=== PATIENT | female | born 1990 | race Caucasian/White ===

== ENCOUNTER 2016-10-15 03:17 | Emergency (ER) | payer OTHER ==
[2016-10-15] MEDS ORDERED: ONDANSETRON 4 MG/2 ML VIAL IVP ONE ×2 (03:54→03:55)
[2016-10-15] MEDS ORDERED: NS 1,000 ML IV ONE (03:54)
--- NOTE | 2016-10-15 03:54 | EDPHY ---
H & P Stated Complaint: RLQ and periumbilical pain x2d, N/V/D, urinary hesitancy Time Seen by Provider: 10/15/16 03:40 HPI/ROS: Chief Complaint: Abdominal pain, nausea, vomiting HPI: 25-year-old woman presenting with 12 hours of abdominal pain, nausea, vomiting and diarrhea. Patient states the pain started kind of generally is crampy pain yesterday afternoon started having nausea and vomiting into the evening. She then this morning states that the pain settled in her right lower abdomen. Has had several episodes of diarrhea since then. Has had some subjective fevers or chills. Does not have a history of the same. Had an implant non placed in July. Does have a history of an umbilical hernia repair. ROS: 10 point Review of Systems is negative except as noted in the HPI. PMH: Umbilical hernia repair, tonsillectomy Medications: implanon Allergies: No known drug allergies Social History: No smoking, occasional alcohol, history of marijuana use but none recently Family History: non-contributory Physical Exam: Gen: Awake, Alert, No Distress HEENT: Nose: no rhinorrhea Eyes: PERRLA, EOMI Mouth: Moist mucosa Neck: Supple, no JVD Chest: nontender, lungs clear to auscultation Heart: S1, S2 normal, no murmur Abd: Soft, tenderness no right lower quadrant with mild voluntary guarding, no rebound, no adnexal tenderness Back: no CVA tenderness, no midline tenderness Ext: no edema, non-tender Skin: no rash Neuro: CN II-XII intact, Sensation grossly intact, Strength 5/5 in bilateral upper and lower extremities - Personal History LMP (Females 10-55): Extended Cycle BCP/Inj Current Tetanus/Diphtheria Vaccine: Unsure Current Tetanus Diphtheria and Acellular Pertussis (TDAP): Unsure - Medical/Surgical History Hx Asthma: No Hx Chronic Respiratory Disease: No Hx Diabetes: No Hx Cardiac Disease: No Hx Renal Disease: No Hx Cirrhosis: No Hx Alcoholism: No Hx HIV/AIDS: No Hx Splenectomy or Spleen Trauma: No Other PMH: hypotension, tonsillectomy, umbilical hernia repair - Social History Smoking Status: Never smoked Constitutional: Initial Vital Signs Temperature (C) 36.3 C 10/15/16 03:19 Heart Rate 110 H 10/15/16 03:19 Respiratory Rate 18 10/15/16 03:19 Blood Pressure 128/68 H 10/15/16 03:19 O2 Sat (%) 97 10/15/16 03:19 O2 Delivery Mode Room Air Allergies/Adverse Reactions: egg yolk Allergy (Verified 10/15/16 03:25) Home Medications: Medication Instructions Recorded Explanon Injection 10/15/16 Medical Decision Making - Diagnostics Imaging: Abdominal ultrasound: Majority of the appendix is visualized and appears normal. There are no other findings suggestive of acute appendicitis. Per Dr. Ramirez ED Course/Re-evaluation: Patient is feeling improved after IV fluids and antiemetics. Repeat examination has a benign abdomen. Laboratory work is unremarkable. Ultrasound shows a largely normal appearing appendix. Patient will be discharged with follow up at [facility] as needed. - Data Points Laboratory Results: Laboratory Results 10/15/16 03:38 10/15/16 03:38 10/15/16 10/15/16 10/15/16 03:38 03:38 03:38 WBC 9.23 10^3/uL 10^3/uL (3.80-9.50) RBC 5.12 10^6/uL 10^6/uL (4.18-5.33) Hgb 15.3 g/dL g/dL (12.6-16.3) Hct 44.8 % % (38.0-47.0) MCV 87.5 fL fL (81.5-99.8) MCH 29.9 pg pg (27.9-34.1) MCHC 34.2 g/dL g/dL (32.4-36.7) RDW 12.4 % % (11.5-15.2) Plt Count 259 10^3/uL 10^3/uL (150-400) MPV 10.1 fL fL (8.7-11.7) Neut % (Auto) 86.1 % H % (39.3-74.2) Lymph % (Auto) 8.2 % L % (15.0-45.0) [place] % (Auto) 4.9 % % (4.5-13.0) Eos % (Auto) 0.3 % L % (0.6-7.6) Baso % (Auto) 0.3 % % (0.3-1.7) Nucleat RBC Rel Count 0.0 % % (0.0-0.2) Absolute Neuts (auto) 7.94 10^3/uL H 10^3/uL (1.70-6.50) Absolute Lymphs (auto) 0.76 10^3/uL L 10^3/uL (1.00-3.00) Absolute Monos (auto) 0.45 10^3/uL 10^3/uL (0.30-0.80) Absolute Eos (auto) 0.03 10^3/uL 10^3/uL (0.03-0.40) Absolute Basos (auto) 0.03 10^3/uL 10^3/uL (0.02-0.10) Absolute Nucleated RBC 0.00 10^3/uL 10^3/uL (0-0.01) Immature Gran % 0.2 % % (0.0-1.1) Immature Gran # 0.02 10^3/uL 10^3/uL (0.00-0.10) Sodium 139 mEq/L mEq/L (134-144) Potassium 4.2 mEq/L mEq/L (3.5-5.2) Chloride 105 mEq/L mEq/L (97-110) Carbon Dioxide 22 mEq/l mEq/l (22-31) Anion Gap 12 mEq/L mEq/L (8-16) BUN 19 mg/dL mg/dL (7-23) Creatinine 0.9 mg/dL mg/dL (0.6-1.0) Estimated GFR > 60 Glucose 107 mg/dL H mg/dL (70-100) Calcium 9.3 mg/dL mg/dL (8.5-10.4) Beta HCG, Qual NEGATIVE Medications Given: Discontinued Medications Sodium Chloride (Ns) 1,000 mls @ 0 mls/hr IV ONCE ONE PRN Reason: Wide Open Stop: 10/15/16 03:55 Last Admin: 10/15/16 04:00 Dose: 1,000 mls Ondansetron HCl (Zofran) 4 mg IVP EDNOW ONE Stop: 10/15/16 03:56 Last Admin: 10/15/16 03:56 Dose: Not Given Ondansetron HCl (Zofran) 4 mg IVP EDNOW ONE Stop: 10/15/16 03:55 Last Admin: 10/15/16 04:01 Dose: 4 mg Departure - Departure Disposition: Home, Routine, Self-Care Clinical Impression: Acute gastroenteritis Condition: Good Instructions: Gastroenteritis (ED), Acute Nausea and Vomiting (ED) Additional Instructions: Drink plenty of fluids. He may take ondansetron for nausea and vomiting. Follow up with [facility] in 2-3 days if symptoms are not improving. Return for worsening pain, fevers, chills, inability to tolerate oral fluids, or any other concerns. Referrals: NONE *PRIMARY CARE P,. [Primary Care Provider] - As per Instructions [facility] [Clinic] - As per Instructions
[2016-10-15 04:01] LABS: % IMMATURE GRANULYOCYTES 0.2 % (0.0-1.1); ABSOLUTE IMMATURE GRANULOCYTES 0.02 10^3/uL (0.00-0.10); ADD DIFF? NO; ADD MORPH? NO; ADD SCAN? NO; ATYPICAL LYMPHOCYTE FLAG 10 (0-99); FRAGMENT RBC FLAG 0 (0-99); HEMATOCRIT 44.8 % (38.0-47.0); HEMOGLOBIN 15.3 g/dL (12.6-16.3); LEFT SHIFT FLG 0 (0-99); LIPEMIA HEMOLYSIS FLAG 90 (0-99); MEAN CELL HEMOGLOBIN 29.9 pg (27.9-34.1); MEAN CELL HEMOGLOBIN CONCENTR. 34.2 g/dL (32.4-36.7); MEAN CELL VOLUME 87.5 fL (81.5-99.8); MEAN PLATELET VOLUME 10.1 fL (8.7-11.7); PLATELET CLUMPS FLAG 0 (0-99); PLATELET COUNT 259 10^3/uL (150-400); RED BLOOD CELL COUNT 5.12 10^6/uL (4.18-5.33); RED CELL DISTRIBUTION WIDTH 12.4 % (11.5-15.2)
[2016-10-15 04:08] LABS: ANION GAP 12 mEq/L (8-16); CALCIUM 9.3 mg/dL (8.5-10.4); CARBON DIOXIDE 22 mEq/l (22-31); CHLORIDE 105 mEq/L (97-110); CREATININE 0.9 mg/dL (0.6-1.0); GLOMERULAR FILTRATION RATE > 60; GLUCOSE 107 mg/dL (70-100); POTASSIUM 4.2 mEq/L (3.5-5.2); SODIUM 139 mEq/L (134-144)
[2016-10-15] MEDS ORDERED: ONDANSETRON 4MG PREPACK#2 BTL TAKEHOME ONE (05:39)
[2016-10-15 05:49] VITALS: BP 100/55; PULSE 97; RESP 16; TEMP 98.6; O2SAT 98
== END 2016-10-15 05:48 | disposition home or self-care (01) ==
DX: K52.9 Noninfective gastroenteritis and colitis, unspecified (principal)
CPT/HCPCS: 96374; J2405

== ENCOUNTER 2018-09-06 22:48 | Emergency (ER) | payer OTHER ==
[2018-09-07] MEDS ORDERED: METOCLOPRAMIDE 10 MG/2 ML VIAL IVP ONE (00:04)
[2018-09-07] MEDS ORDERED: NS 1,000 ML IV ONE (00:04)
[2018-09-07] MEDS ORDERED: DEXAMETHASONE 10 MG/ML VIAL IVP ONE (00:04)
[2018-09-07] MEDS ORDERED: KETOROLAC 30 MG/1 ML SDV IVP ONE (00:04)
--- NOTE | 2018-09-07 01:05 | EDPHY ---
H & P Stated Complaint: dizzy tonight, intermittent HAs since - Personal History LMP (Females 10-55): Now Current Tetanus/Diphtheria Vaccine: Unsure - Medical/Surgical History Hx Asthma: No Hx Chronic Respiratory Disease: No Hx Diabetes: No Hx Cardiac Disease: No Hx Renal Disease: No Hx Cirrhosis: No Hx Alcoholism: No Hx HIV/AIDS: No Hx Splenectomy or Spleen Trauma: No Other PMH: hypotension, tonsillectomy, umbilical hernia repair - Social History Smoking Status: Never smoked Time Seen by Provider: 09/06/18 23:08 HPI/ROS: Chief complaint: Headache History of present illness: This is a 27-year-old female who presents to the emergency department for evaluation of a headache. Patient reports the onset headache approximately 3 days ago. She was in her usual state of health on Monday. She woke up Monday with what she believes is migraine. She describes a throbbing headache primarily behind her left eye. She had associated photo and phonophobia. She had nausea without vomiting. Symptoms improved throughout the day and eventually resolved. However since then she has had intermittent waxing waning of the headache coming back. In addition she has felt slightly fatigued and foggy today. She does not have a history of headaches, this is atypical. However, the headache was not thunderclap in nature. No associated signs or symptoms such as fever or cold symptoms, neck pain, paresthesias, weakness or paralysis, bowel or bladder dysfunction or trauma. She does have an appointment with her primary care doctor tomorrow for recheck. Review of systems: 10 point review of systems was obtained and other than described above was negative. (Santiago Wei) - Physical Exam Exam: General Appearance: Alert, no distress. Eyes: Pupils equal and round no pallor or injection. ENT, Mouth: Mucous membranes moist. Respiratory: There are no retractions, lungs are clear to auscultation. Cardiovascular: Regular rate and rhythm. Gastrointestinal: Abdomen is soft and non tender, no masses, bowel sounds normal. Neurological: Alert and oriented x4. Cranial nerves 2-12 grossly intact. Strength and sensation intact and symmetrical. No pronator drift. Cerebellar function intact. No meningismus. Skin: Warm and dry, no rashes. Musculoskeletal: Neck is supple non tender. Extremities are symmetrical, full range of motion. Psychiatric: Patient is oriented X 3, there is no agitation. (Santiago Wei) Constitutional: Initial Vital Signs Temperature (C) 36.6 C 09/06/18 22:52 Heart Rate 18 L 09/06/18 22:52 Respiratory Rate 64 H 09/06/18 22:52 Blood Pressure 109/72 09/06/18 22:52 O2 Sat (%) 98 09/06/18 22:52 O2 Delivery Mode Room Air Allergies/Adverse Reactions: egg yolk Allergy (Verified 10/15/16 03:25) Home Medications: Medication Instructions Recorded Explanon Injection 10/15/16 Medical Decision Making - Diagnostics Imaging: Discussed imaging studies w/ crew caller Radiologist ED Course/Re-evaluation: Patient is discussed with my secondary supervising physician Dr. Madiha Harden. Patient presents for new onset headache that has been waxing and waning for the last 3 days. Given this is a new headache a CT scan was obtained and negative. Given headache was not thunderclap in nature, she has a nonfocal neurologic exam and a negative CT scan my suspicion for serious pathology is low. She has been treated symptomatically with improvement in symptoms. She will be discharged home. She already has an appointment with her primary care doctor tomorrow for recheck and is encouraged to keep this. Home care is discussed. Return precautions are given. The patient voiced understanding and agreement with plan. (Santiago Wei) PHYSICIAN DOCUMENTATION: The patient was evaluated and managed by the Physician Shear Setter. My co- signature indicates that I have reviewed this chart and I agree with the findings and plan of care as documented. I am the secondary supervising physician. (Madiha Harden) Differential Diagnosis: Included but not limited to migraine, tension, cluster in chronic daily headaches, doubtful intracranial bleed or mass given nonfocal neurologic exam and negative CT scan (Santiago Wei) - Data Points Medications Given: Discontinued Medications Dexamethasone (Decadron Injection) 10 mg IVP EDNOW ONE Stop: 09/07/18 00:05 Last Admin: 09/07/18 00:28 Dose: 10 mg Diphenhydramine HCl (Benadryl Injection) 25 mg IVP EDNOW ONE Stop: 09/07/18 00:05 Last Admin: 09/07/18 00:27 Dose: 25 mg Sodium Chloride (Ns) 1,000 mls @ 0 mls/hr IV ONCE ONE; Wide Open PRN Reason: Protocol Stop: 09/07/18 00:05 Last Admin: 09/07/18 00:15 Dose: 1,000 mls Ketorolac Tromethamine (Toradol) 15 mg IVP EDNOW ONE Stop: 09/07/18 00:05 Last Admin: 09/07/18 00:28 Dose: 15 mg Metoclopramide HCl (Reglan Injection) 10 mg IVP EDNOW ONE Stop: 09/07/18 00:05 Last Admin: 09/07/18 00:29 Dose: 10 mg Departure - Departure Disposition: Home, Routine, Self-Care Clinical Impression: Headache Qualifiers: Headache type: unspecified Headache chronicity pattern: acute headache Intractability: not intractable Qualified Code(s): R51 - Headache Condition: Good Instructions: Acute Headache (ED) Additional Instructions: Follow-up with her primary care doctor tomorrow as already arranged. You can let your doctor know that you're noncontrast CT scan of the head was negative If any time your symptoms worsen or new symptoms develop return to the emergency room for recheck. Referrals: NONE *PRIMARY CARE P,. [Primary Care Provider] - As per Instructions [facility] [Cl[facility]] - As per Instructions
[2018-09-07 01:41] VITALS: BP 103/47
== END 2018-09-07 01:40 | disposition home or self-care (01) ==
DX: R51 Headache (principal); E86.9 Volume depletion, unspecified
CPT/HCPCS: 96374; J1100; J1200; J1885; J2765